=== PATIENT | female | born 1960 | race Two or more races ===

== ENCOUNTER 2016-07-25 17:15 | Emergency (ER) | payer OTHER | END 2016-07-25 18:21 | disposition home or self-care (01) | LOC: ED 17:15 | DX: J11.1 Influenza due to unidentified influenza virus with other respiratory manifestations (principal); J32.9 Chronic sinusitis, unspecified; E11.9 Type 2 diabetes mellitus without complications; E78.00 Pure hypercholesterolemia, unspecified ==